=== PATIENT | male | born 1965 | race Caucasian/White ===

== ENCOUNTER → 2017-03-20 | Outpatient (CLI) | payer OTHER ==
[~2017-03-20] MED LIST: AMARYL4 MG PO; CRESTOR10 MG PO; FISH OIL300 MG PO; GLIMEPIRIDE2 MG PO; LISINOPRIL2.5 MG PO; LO-DOSE ASPIRIN81 M2 PO; LORTAB 5-325 M1 EACH PO; MELATONIN1 MG PO; METFORMIN HCL1000 MG PO; METFORMIN HCL500 M4 PO; MOTRIN600 MG PO; NEXIUM40 MG PO
== END | disposition home or self-care (01) ==
LOC: CDC 14:53
DX: K80.20 Calculus of gallbladder without cholecystitis without obstruction (principal)
CPT/HCPCS: 93000

== ENCOUNTER 2017-03-27 07:38 | Day surgery (SDC) | payer OTHER ==
[~2017-03-27] VITALS: Ht 182.9 cm; Wt 106.6 kg
[2017-03-27 08:29] VITALS: BP 123/83
[2017-03-27 08:55] LABS: POINT-OF-CARE METER ID UU14174212
[2017-03-27] MEDS ORDERED: NORCO 5/3251 TABLET PO (09:53)
[2017-03-27 10:05] LABS: POINT-OF-CARE METER ID UU13113675; POINT-OF-CARE USER ID 515036437
[2017-03-27 10:50] VITALS: BP 106/63
[2017-03-27 12:03] VITALS: BP 123/73
== END 2017-03-27 12:15 | disposition home or self-care (01) ==
LOC: SDC
PROVIDERS: Surgery
PROC: 0FT44ZZ Resection of Gallbladder, Percutaneous Endoscopic Approach (ICD-10-PCS; principal; 2017-03-27)
DX: K80.10 Calculus of gallbladder with chronic cholecystitis without obstruction (principal); K21.9 Gastro-esophageal reflux disease without esophagitis; E78.5 Hyperlipidemia, unspecified; E66.3 Overweight; E11.9 Type 2 diabetes mellitus without complications; Z79.82 Long term (current) use of aspirin; Z79.84 Long term (current) use of oral hypoglycemic drugs; F17.200 Nicotine dependence, unspecified, uncomplicated; Z83.3 Family history of diabetes mellitus; Z83.49 Family history of other endocrine, nutritional and metabolic diseases; Z88.0 Allergy status to penicillin; Z88.8 Allergy status to other drugs, medicaments and biological substances
CPT/HCPCS: 82948; 88304; J0330; J0690; J1885; J2405; J3010